=== PATIENT | male | born 1960 | race Caucasian/White ===

== ENCOUNTER 2017-02-22 18:00 | Outpatient (CLI) | payer OTHER | END 2017-02-22 18:01 | disposition home or self-care (01) | LOC: SLEEPLAB 18:00 | PROVIDERS: ATTEND Family Medicine | DX: G47.33 Obstructive sleep apnea (adult) (pediatric) (principal); E66.9 Obesity, unspecified; R06.83 Snoring; I10 Essential (primary) hypertension | CPT/HCPCS: 95806 ==

== ENCOUNTER 2019-01-31 08:35 | Outpatient (CLI) | payer OTHER ==
--- NOTE | 2019-01-31 12:02 | MRI ---
RIGHT SHOULDER MRI WITHOUT IV CONTRAST: Date: 01/31/19 HISTORY: Sprain right shoulder. FINDINGS: AC joint arthrosis changes are noted with subchondral cystic changes and a small cranially projecting synovial cyst with minimal adjacent marrow edema. There is some fluid and fat stranding in the subac romial/subdeltoid bursa. Subchondral intraosseous signal changes are noted of the anterior greater tu berosity. There is an irregular high grade undersurface and interstitial tear of the supraspinatus te ndon with undersurface retraction back to the level of the rotator cable. There is also a small under surface and delaminating tear of the infraspinatus tendon. Abnormal undersurface and delaminating tea r/tears of the subscapularis tendon with medial subluxation of the biceps tendon from the upper bicip ital groove with evidence for disruption of the biceps tendon erin complex. Minimal abnormal increa sed signal associated with the superior labrum, probably a small degenerative-type SLAP tear. IMPRESSION: 1. Rotator cuff tears as above. 2. Marked AC joint arthrosis with minimal fluid in the subacromial/subdeltoid bursal regions. 3. Evidence for small SLAP tear. 4. Rotator cuff muscles appear to be within normal limits of signal and volume. POS: [facility]
--- NOTE | 2019-01-31 12:11 | MRI ---
LEFT SHOULDER MRI WITHOUT IV CONTRAST: Date: 01/31/19 HISTORY: Sprain left shoulder, left shoulder pain. TECHNIQUE: Multiplanar, multisequence MRI examination of the left shoulder is performed. FINDINGS: There are prominent AC joint arthrosis changes with some subchondral cystic changes and some fairly e xtensive marrow edema, particularly in the distal adjacent clavicle. There is fluid in the subacromia l/subdeltoid bursa. There is a nonretracted full thickness insertional tear of the supraspinatus tend on with some undersurface partial retraction to the level of the rotator cable, as well as an undersu rface and delaminating tear of the infraspinatus tendon with a small sentinel cyst at the myotendinou s junction. Undersurface and delaminating subscapularis tendon tear. Biceps tendon appears intact. Th e superior labrum is indistinct and blunted, evidence for degenerative tear or fraying. IMPRESSION: Rotator cuff tears as above. Prominent AC joint arthrosis. Blunted superior labrum. Rotator cuff musc les within normal limits of signal and volume. POS: [facility]
== END 2019-01-31 08:36 | disposition home or self-care (01) ==
LOC: SCSMRI 08:35
PROVIDERS: ATTEND Family Medicine
DX: S43.92XD Sprain of unspecified parts of left shoulder girdle, subsequent encounter (principal); S39.012D Strain of muscle, fascia and tendon of lower back, subsequent encounter; M75.102 Unspecified rotator cuff tear or rupture of left shoulder, not specified as traumatic; M19.012 Primary osteoarthritis, left shoulder; M19.011 Primary osteoarthritis, right shoulder; S43.431A Superior glenoid labrum lesion of right shoulder, initial encounter; M75.101 Unspecified rotator cuff tear or rupture of right shoulder, not specified as traumatic

== ENCOUNTER 2021-02-21 15:18 | Inpatient (IN) | payer OTHER ==
[2021-02-21 16:10] LABS: #Eosinphils 0.1 thou/uL (0.0-0.7); #Monocytes 0.6 thou/uL (0.11-0.59); %Basophils 0.4 % (0.0-1.0); %Eosinophils 2.2 % (0.0-10.0); %Lymphocytes 28.8 % (21.0-51.0); %Neutrophils 59.6 % (42.0-75.0); Hemoglobin 15.8 g/dL (14.0-18.0); Mean Corpuscular HGB CONC 34.6 g/dL (32.0-36.0); Mean Corpuscular Hemoglobin 31.5 pg (27.0-31.0); Mean Corpuscular Volume 91.1 fL (78.0-98.0); Mean Platelet Volume 7.2 fL (7.4-10.4); Platelet Count 336 thou/uL (130-400); Red Blood Cell (RBC) Count 5.01 mill/uL (4.70-6.10); White Blood Cell (WBC) Count 6.8 thou/uL (4.8-10.8)
[2021-02-21 16:30] LABS: ALT (SGPT) 28 U/L (8-55); AST (SGOT) 23 U/L (5-34); Albumin 4.7 g/dL (3.5-5.0); Alkaline Phosphatase 93 U/L (40-110); Anion Gap 15 mmol/L (10-20); BUN (Urea Nitrogen) 26 mg/dL (8.4-25.7); Bilirubin, Total 0.6 mg/dL (0.2-1.2); Calc. Creatinine Clearance 0 mL/min (70-130); Calcium 9.8 mg/dL (7.8-10.44); Carbon Dioxide 28 mmol/L (22-29); Chloride 101 mmol/L (98-107); Globulin 3.4 g/dL (2.4-3.5); Glucose 105 mg/dL (70-105); Potassium 4.1 mmol/L (3.5-5.1); Protein, Total 8.1 g/dL (6.0-8.3); Sodium 140 mmol/L (136-145)
[2021-02-21 17:12] LABS: CKMB 2.7 ng/mL (0-6.6)
[2021-02-21] MEDS ORDERED: Morphine 4 MG/ML VIAL ONE (17:19)
[2021-02-21] MEDS ORDERED: Nitroglycerin 2% Ointment 1 INCH/1 GM Packet ONE (17:19)
[2021-02-21] MEDS ORDERED: Aspirin Chewable 81 MG TAB ONE (17:20)
[2021-02-21 17:29] LABS: Bilirubin Negative (Negative); Blood, Urine Negative (Negative); Clarity Clear (Clear); Glucose, Urine (Dipstick) Normal (Negative); Ketone, Urine Negative (Negative); Leukocyte Negative Leu/uL (Negative); Nitrite Negative (Negative); Protein, Urine (Dipstick) Negative (Neg-Trace); Specific Gravity, Urine 1.021 (1.002-1.036); Urobilinogen Normal mg/dL (Less than 2)
[2021-02-21] MEDS ORDERED: Enoxaparin Sodium 60 MG/0.6 ML SYRINGE ONE (17:31)
[2021-02-21] MEDS ORDERED: Ondansetron PF 4 MG/2 ML Vial IVP PRN (18:37)
[2021-02-21] MEDS ORDERED: Acetaminophen 325 MG TAB PO PRN (18:37)
[2021-02-21] MEDS ORDERED: Nitroglycerin 0.4 MG TAB (25 Tab Bottle) SL PRN (18:40)
[2021-02-21] MEDS ORDERED: Morphine 2 MG/ML VIAL SLOW IVP PRN (18:40)
[2021-02-21 18:47] VITALS: BMI 36.3
[2021-02-21] MEDS ORDERED: Morphine 4 MG/ML VIAL SLOW IVP PRN (19:45)
[2021-02-21 19:46] LABS: Troponin I 0.614 ng/mL (< 0.028)
[2021-02-21] MEDS ORDERED: FLU VACC QS2021-22(6MOS UP)/PF 60 MCG/0.5 ML SYRINGE IM ONE (20:30)
[2021-02-21] MEDS: Sodium Chloride 0.9% 1,000 ML IV SCH (20:42)
[2021-02-21 22:07] LABS: Critical Call Chem Troponin I RESULT DECREASING; Troponin I 0.577 ng/mL (< 0.028)
[2021-02-22 05:37] LABS: #Basophils 0.1 thou/uL (0.0-0.2); #Eosinphils 0.3 thou/uL (0.0-0.7); #Lymphocytes 2.5 thou/uL (1.20-3.40); #Monocytes 0.7 thou/uL (0.11-0.59); %Basophils 0.7 % (0.0-1.0); %Eosinophils 3.9 % (0.0-10.0); %Monocytes 8.9 % (0.0-10.0); %Neutrophils 53.5 % (42.0-75.0); Hemoglobin 13.6 g/dL (14.0-18.0); Mean Corpuscular HGB CONC 35.8 g/dL (32.0-36.0); Mean Corpuscular Hemoglobin 32.4 pg (27.0-31.0); Mean Corpuscular Volume 90.5 fL (78.0-98.0); Mean Platelet Volume 7.5 fL (7.4-10.4); Platelet Count 296 thou/uL (130-400); RBC Distribution Width 12.1 % (11.5-14.5); Red Blood Cell (RBC) Count 4.21 mill/uL (4.70-6.10); White Blood Cell (WBC) Count 7.5 thou/uL (4.8-10.8)
[2021-02-22 05:47] LABS: Anion Gap 13 mmol/L (10-20); BUN (Urea Nitrogen) 25 mg/dL (8.4-25.7); Calc. Creatinine Clearance 129 mL/min (70-130); Calcium 9.1 mg/dL (7.8-10.44); Carbon Dioxide 28 mmol/L (22-29); Chloride 103 mmol/L (98-107); Glucose 90 mg/dL (70-105); Potassium 3.9 mmol/L (3.5-5.1); Sodium 140 mmol/L (136-145)
[2021-02-22] MEDS: Sodium Chloride 0.9% 1,000 ML IV SCH ×2 (09:30→21:25)
[2021-02-22 15:21] LABS: SARS-CoV-2 PCR by NAA Not Detected (NotDetected)
[2021-02-22] MEDS: Amlodipine 5 mg/Benazepril 10 mg CAP PO SCH (17:29)
[2021-02-23] MEDS: Sodium Chloride 0.9% 1,000 ML IV SCH (02:26)
[2021-02-23 04:51] LABS: #Eosinphils 0.4 thou/uL (0.0-0.7); #Monocytes 0.6 thou/uL (0.11-0.59); #Neutrophils 3.4 thou/uL (1.40-6.50); %Basophils 0.8 % (0.0-1.0); %Eosinophils 6.2 % (0.0-10.0); %Lymphocytes 31.1 % (21.0-51.0); %Monocytes 9.1 % (0.0-10.0); %Neutrophils 52.8 % (42.0-75.0); Hemoglobin 13.3 g/dL (14.0-18.0); Mean Corpuscular HGB CONC 35.5 g/dL (32.0-36.0); Mean Corpuscular Hemoglobin 32.3 pg (27.0-31.0); Mean Corpuscular Volume 91.1 fL (78.0-98.0); Mean Platelet Volume 7.3 fL (7.4-10.4); Platelet Count 266 thou/uL (130-400); RBC Distribution Width 11.8 % (11.5-14.5); Red Blood Cell (RBC) Count 4.11 mill/uL (4.70-6.10); White Blood Cell (WBC) Count 6.4 thou/uL (4.8-10.8)
[2021-02-23 05:08] LABS: Anion Gap 10 mmol/L (10-20); BUN (Urea Nitrogen) 16 mg/dL (8.4-25.7); Calc. Creatinine Clearance 157 mL/min (70-130); Calcium 8.9 mg/dL (7.8-10.44); Carbon Dioxide 28 mmol/L (22-29); Chloride 104 mmol/L (98-107); Glucose 90 mg/dL (70-105); Potassium 4.1 mmol/L (3.5-5.1); Sodium 138 mmol/L (136-145)
[2021-02-23] MEDS: Amlodipine 5 mg/Benazepril 10 mg CAP PO SCH (09:16)
[2021-02-24 05:23] LABS: #Eosinphils 0.3 thou/uL (0.0-0.7); #Lymphocytes 1.9 thou/uL (1.20-3.40); #Monocytes 0.5 thou/uL (0.11-0.59); #Neutrophils 3.1 thou/uL (1.40-6.50); %Basophils 0.3 % (0.0-1.0); %Eosinophils 4.7 % (0.0-10.0); %Lymphocytes 33.1 % (21.0-51.0); %Monocytes 9.2 % (0.0-10.0); %Neutrophils 52.6 % (42.0-75.0); Mean Corpuscular HGB CONC 35.7 g/dL (32.0-36.0); Mean Corpuscular Hemoglobin 32.2 pg (27.0-31.0); Mean Corpuscular Volume 90.1 fL (78.0-98.0); Mean Platelet Volume 6.7 fL (7.4-10.4); Platelet Count 295 thou/uL (130-400); RBC Distribution Width 11.6 % (11.5-14.5); Red Blood Cell (RBC) Count 4.03 mill/uL (4.70-6.10); White Blood Cell (WBC) Count 5.8 thou/uL (4.8-10.8)
[2021-02-24 05:47] LABS: Anion Gap 10 mmol/L (10-20); BUN (Urea Nitrogen) 14 mg/dL (8.4-25.7); Calc. Creatinine Clearance 166 mL/min (70-130); Carbon Dioxide 27 mmol/L (22-29); Chloride 105 mmol/L (98-107); Glucose 100 mg/dL (70-105); Potassium 4.1 mmol/L (3.5-5.1); Sodium 138 mmol/L (136-145)
[2021-02-24 08:21] LABS: Cardiac Risk 6.1 (Less than 4.5)
[2021-02-24] MEDS: Aspirin 81 mg Enteric Coated Tablet PO SCH (08:45)
[2021-02-24] MEDS: Amlodipine 5 mg/Benazepril 10 mg CAP PO SCH (08:45)
[2021-02-24] MEDS ORDERED: Lidocaine 1% (PF) 30 ML VIAL ONE (12:23)
[2021-02-24] MEDS ORDERED: Verapamil 5 MG/2 ML VIAL ONE ×2 (12:47→13:28)
[2021-02-24] MEDS ORDERED: Nitroglycerin 100MG/250ML BOT 0 ML ONE (12:47)
[2021-02-24] MEDS ORDERED: Heparin 10,000 UNITS/ 10 ML VIAL ONE ×2 (12:47→13:49)
[2021-02-24] MEDS ORDERED: Nitroglycerin 50 MG/250 ML BOT 250 ML ONE (12:48)
[2021-02-24] MEDS ORDERED: Fentanyl 100 MCG/2 ML VIAL ONE (13:04)
[2021-02-24] MEDS ORDERED: Midazolam HCl 2 mg/2 ml Vial ONE ×2 (13:04→13:33)
[2021-02-24] MEDS ORDERED: Iopamidol 370 76% 100 ML VIAL ONE (13:23)
[2021-02-24] MEDS ORDERED: Iopamidol 370 76% 50 ML VIAL FS ONE (13:23)
[2021-02-24] MEDS ORDERED: TICAGRELOR 90 MG TABLET ONE (13:28)
[2021-02-24] MEDS ORDERED: Protamine Sulfate 50 MG/5 ML VIAL ONE (13:49)
[2021-02-24] MEDS ORDERED: Sodium Chloride 0.9% 500 ML IV SCH (14:00)
[2021-02-24] MEDS: TICAGRELOR 90 MG TABLET PO SCH (19:55)
[2021-02-24] MEDS ORDERED: Atorvastatin Calcium 40 MG TAB PO SCH (21:00)
[2021-02-25 04:58] LABS: #Eosinphils 0.3 thou/uL (0.0-0.7); #Lymphocytes 1.8 thou/uL (1.20-3.40); #Monocytes 0.6 thou/uL (0.11-0.59); #Neutrophils 4.8 thou/uL (1.40-6.50); %Basophils 0.3 % (0.0-1.0); %Lymphocytes 24.1 % (21.0-51.0); %Monocytes 8.2 % (0.0-10.0); %Neutrophils 63.4 % (42.0-75.0); Hemoglobin 13.7 g/dL (14.0-18.0); Mean Corpuscular Hemoglobin 32.3 pg (27.0-31.0); Mean Corpuscular Volume 89.7 fL (78.0-98.0); Mean Platelet Volume 6.2 fL (7.4-10.4); Platelet Count 304 thou/uL (130-400); RBC Distribution Width 11.6 % (11.5-14.5); Red Blood Cell (RBC) Count 4.26 mill/uL (4.70-6.10); White Blood Cell (WBC) Count 7.6 thou/uL (4.8-10.8)
[2021-02-25 05:25] LABS: ALT (SGPT) 32 U/L (8-55); AST (SGOT) 22 U/L (5-34); Albumin 3.9 g/dL (3.5-5.0); Alkaline Phosphatase 72 U/L (40-110); Anion Gap 12 mmol/L (10-20); BUN (Urea Nitrogen) 15 mg/dL (8.4-25.7); Bilirubin, Total 0.7 mg/dL (0.2-1.2); Calc. Creatinine Clearance 140 mL/min (70-130); Calcium 9.7 mg/dL (7.8-10.44); Carbon Dioxide 26 mmol/L (22-29); Chloride 103 mmol/L (98-107); Globulin 2.8 g/dL (2.4-3.5); Glucose 102 mg/dL (70-105); Potassium 4.4 mmol/L (3.5-5.1); Protein, Total 6.7 g/dL (6.0-8.3); Sodium 137 mmol/L (136-145)
[2021-02-25] MEDS: Amlodipine 5 mg/Benazepril 10 mg CAP PO SCH (08:09)
[2021-02-25] MEDS: Aspirin 81 mg Enteric Coated Tablet PO SCH (08:09)
[2021-02-25] MEDS: TICAGRELOR 90 MG TABLET PO SCH (08:09)
[2021-02-25 15:35] VITALS: BP 157/85; TEMP 98
== END 2021-02-25 18:45 | disposition home or self-care (01) | DRG 247 ==
LOC: ERS 15:18 → 2NO 17:32
PROVIDERS: ADMIT Family Medicine; ATTEND Internal Medicine
PROC: 027035Z Dilation of Coronary Artery, One Artery with Two Drug-eluting Intraluminal Devices, Percutaneous Approach (ICD-10-PCS; principal; 2021-02-24)
PROC: 4A023N7 Measurement of Cardiac Sampling and Pressure, Left Heart, Percutaneous Approach (ICD-10-PCS; 2021-02-24)
PROC: B2151ZZ Fluoroscopy of Left Heart using Low Osmolar Contrast (ICD-10-PCS; 2021-02-24)
PROC: B2111ZZ Fluoroscopy of Multiple Coronary Arteries using Low Osmolar Contrast (ICD-10-PCS; 2021-02-24)
DX: I21.4 Non-ST elevation (NSTEMI) myocardial infarction (principal); N17.9 Acute kidney failure, unspecified; I10 Essential (primary) hypertension; Z20.822 Contact with and (suspected) exposure to COVID-19; E66.9 Obesity, unspecified; Z87.442 Personal history of urinary calculi; Z90.49 Acquired absence of other specified parts of digestive tract; Z79.899 Other long term (current) drug therapy; Z83.3 Family history of diabetes mellitus; Z81.8 Family history of other mental and behavioral disorders; Z82.49 Family history of ischemic heart disease and other diseases of the circulatory system; Z68.36 Body mass index [BMI] 36.0-36.9, adult; I25.10 Atherosclerotic heart disease of native coronary artery without angina pectoris; E78.5 Hyperlipidemia, unspecified
CPT/HCPCS: 36415; 71045; 78452; 80048; 80053; 80061; 81003; 82553; 84484; 85025; 85347; 86140; 92928; 93005; 93010; 93017; 93458; 93798; 96372; 96374; 99152; 99153; A9500; C1769; C9600; J0153; J1644; J1650; J2001; J2250; J2270; J2720; J3010; J7030; J7050; Q9967; U0003; U0005

== ENCOUNTER 2023-08-24 10:06 | Outpatient (CLI) | payer BC ==
[2023-08-24 12:02] LABS: Hemoglobin 14.6 g/dL (13.5-17.5); Mean Corpuscular HGB CONC 35.6 g/dL (32.0-36.0); Mean Corpuscular Hemoglobin 31.6 pg (27.0-33.0); Mean Corpuscular Volume 88.7 fl (81.2-95.1); Mean Platelet Volume 9.6 fl (7.4-10.4); Platelet Count 304 10x3/uL (150-450); RBC Distribution Width 12.8 % (11.5-14.5); Red Blood Cell (RBC) Count 4.62 10x6/uL (4.32-5.72)
[2023-08-24 12:21] LABS: PTT 26.9 sec (22.0-33.0)
[2023-08-24 12:32] LABS: Anion Gap 18 mmol/L (10-20); BUN (Urea Nitrogen) 18 mg/dL (8.4-25.7); Calc. Creatinine Clearance 0 mL/min (70-130); Calcium 10.1 mg/dL (7.8-10.44); Carbon Dioxide 24 mmol/L (22-29); Chloride 101 mmol/L (98-107); Estimated GFR 68; Glucose 97 mg/dL (70-105); Potassium 3.9 mmol/L (3.5-5.1); Sodium 139 mmol/L (136-145)
== END 2023-08-24 10:07 | disposition home or self-care (01) ==
LOC: LABBT 10:06
PROVIDERS: ATTEND Urology
DX: Z01.818 Encounter for other preprocedural examination (principal); D49.4 Neoplasm of unspecified behavior of bladder; R31.0 Gross hematuria
CPT/HCPCS: 80048; 85027; 85610; 85730; 87086; 93005; 93010

== ENCOUNTER 2023-08-30 07:18 | Day surgery (SDC) | payer BC ==
[2023-08-24 10:38] VITALS: BMI 35.6
[2023-08-30] MEDS ORDERED: fentaNYL PF 100 MCG/2 ML SYRINGE ONE (10:53)
[2023-08-30] MEDS ORDERED: Midazolam HCl 2 mg/2 ml Vial ONE (10:53)
[2023-08-30] MEDS ORDERED: PROPOFOL 20 ML ONE (10:53)
[2023-08-30] MEDS ORDERED: Sodium Chloride 0.9% 100 ML ONE (11:06)
[2023-08-30] MEDS ORDERED: CEFAZOLIN 2 GM VIAL ONE (11:06)
[2023-08-30] MEDS ORDERED: Lidocaine 1% PF 5 ML VIAL ONE (11:20)
[2023-08-30] MEDS ORDERED: Rocuronium Bromide 10 MG/ML (10ML VIAL) ONE (11:20)
[2023-08-30] MEDS ORDERED: Ondansetron PF 4 MG/2 ML Vial ONE (11:56)
[2023-08-30] MEDS ORDERED: Dexamethasone 20 MG/5 ML VIAL ONE (11:56)
[2023-08-30] MEDS ORDERED: SUGAMMADEX SODIUM 200 MG/2 ML VIAL ONE (12:09)
== END 2023-08-30 15:15 | disposition home or self-care (01) ==
LOC: SDC 07:18
PROVIDERS: ATTEND Urology
PROC: 0TBB8ZX Excision of Bladder, Via Natural or Artificial Opening Endoscopic, Diagnostic (ICD-10-PCS; principal; 2023-08-30)
DX: N30.90 Cystitis, unspecified without hematuria (principal); N32.89 Other specified disorders of bladder; I10 Essential (primary) hypertension; E78.00 Pure hypercholesterolemia, unspecified; Z79.899 Other long term (current) drug therapy
CPT/HCPCS: 88305; 88342; J1100; J2250; J2405; J2704; J3490